=== PATIENT | female | born 1945 | race Caucasian/White ===

== ENCOUNTER 2017-12-12 08:56 | Day surgery (SDC) | payer MEDICARE ==
[2016-01-10 16:35] VITALS: BMI 36.9
--- NOTE | 2017-12-12 09:11 | CP.SDSHP ---
Same Day Surgery H & P - History Proposed Procedure: colonoscopy - Previous Medical/Surgical History Cardiac: Hypertension Endocrine/Metabolic: Diabetes - Allergies Allergies: Allergies Penicillins Allergy (Verified 01/10/16 16:39) RASH - Date & Time Date: 12/12/17 Time: 09:11 Short Stay Discharge - Short Stay Discharge Admitting Diagnosis/Reason for Visit: HISTORY OF COLONIC POLYPS / FAMILY HISTORY OF COLO Disposition: HOME/ ROUTINE
[2017-12-12] MEDS ORDERED: Propofol 10 mg/ml Inj (20 ML) ONE (09:17)
[2017-12-12] MEDS ORDERED: Lactated Ringer's 500 ML IV SCH (09:30)
[2017-12-12 09:32] VITALS: O2SAT 100
[2017-12-12 10:28] VITALS: TEMP 97.1
[2017-12-12 11:48] VITALS: BP 115/58; PULSE 70; RESP 17
== END 2017-12-12 11:45 | disposition home or self-care (01) ==
LOC: C.ENDO 08:56
PROVIDERS: ATTEND Colon & Rectal Surgery
DX: Z12.11 Encounter for screening for malignant neoplasm of colon (principal); Z80.0 Family history of malignant neoplasm of digestive organs; D12.2 Benign neoplasm of ascending colon; D12.5 Benign neoplasm of sigmoid colon; K57.30 Diverticulosis of large intestine without perforation or abscess without bleeding; K64.8 Other hemorrhoids
CPT/HCPCS: 45380; 45385; 82948; 88305; J2001; J2704; J7120

== ENCOUNTER 2018-06-05 12:26 | Outpatient (CLI) | payer MEDICARE | END 2018-06-05 12:27 | disposition home or self-care (01) | LOC: C.USIC 12:27 ==